=== PATIENT | female | born 1975 | race Two or more races ===

== ENCOUNTER 2021-05-09 23:08 | Emergency (ER) | payer OTHER ==
[~2021-05-09] VITALS: Ht 157.5 cm; Wt 99.8 kg
[2021-05-09] MEDS ORDERED: NITROGLYCERIN0.4 MG SL (23:19)
[2021-05-10] MEDS ORDERED: CEPHALEXIN500 M1 PO (06:39)
[2021-05-10] MEDS ORDERED: DOLOGESIC 500-1 EACH PO ×2 (06:40)
== END 2021-05-10 06:53 ==
LOC: ER 23:08
DX: N39.0 Urinary tract infection, site not specified (principal); R07.89 Other chest pain; Z20.822 Contact with and (suspected) exposure to COVID-19